=== PATIENT | female | born 1945 | race Caucasian/White ===

== ENCOUNTER 2018-10-16 05:30 | Day surgery (SDC) | payer MEDICARE ==
[~2018-10-16] VITALS: Ht 154.9 cm; Wt 56.6 kg
[2018-10-16] MEDS ORDERED: SODIUM CHLORIDE 0.9% 1000ML 1,000 ML IV ONE (05:50)
[2018-10-16 06:11] VITALS: BP 188/94
[2018-10-16] MEDS ORDERED: LOSA100T58 PO (06:21)
[2018-10-16] MEDS ORDERED: CLON0.1T PO (06:21)
[2018-10-16] MEDS ORDERED: ATEN100T PO (06:21)
[2018-10-16] MEDS ORDERED: GLYCOPYRROLATE 0.2 MG/ML 5 ML VIAL ONE (06:34)
[2018-10-16] MEDS ORDERED: PROPOFOL 10 MG/ML 20ML VIAL IV ONE (06:34)
[2018-10-16] MEDS ORDERED: LIDOCAINE HCL-MPF 2% 5ML VIAL ONE (06:34)
[2018-10-16 06:55] VITALS: BP 82/50
--- NOTE | 2018-10-16 07:35 | NUR ---
UPDATE I took my other patient to the restroom when Rica KATE erased this patient's blood pressures. Patient's blood pressure was not within 20% of her baseline, Raina Rm CRNA was aware and stated as long as the systolic blood pressure was over 100mmhg and she was alert, she may be discharge.
--- NOTE | 2018-10-16 07:36 | NUR ---
Update Patient was alert, oriented, in stable condition without dizziness upon discharge. Systolic blood pressure over 100mmhg upon discharge.
== END 2018-10-16 07:34 | disposition home or self-care (01) ==
LOC: DAH 05:30 → ENDO 05:30
PROVIDERS: ATTEND Internal Medicine
DX: Z12.11 Encounter for screening for malignant neoplasm of colon (principal); K57.30 Diverticulosis of large intestine without perforation or abscess without bleeding; K64.0 First degree hemorrhoids; Z79.899 Other long term (current) drug therapy
CPT/HCPCS: 93005; A4606; G0121; J2704; J3490 ×2; J7030; 45378

== ENCOUNTER → 2023-04-18 | Outpatient (CLI) | payer OTHER ==
[~2023-04-18] MED LIST: ATEN100T PO; CLON0.1T PO; LOSA100T59 PO
== END | disposition home or self-care (01) ==
LOC: OIH 13:11
PROVIDERS: ATTEND Family Medicine
DX: Z13.6 Encounter for screening for cardiovascular disorders (principal)
CPT/HCPCS: 75571